=== PATIENT | female | born 1975 | race Asian ===

== ENCOUNTER → 2023-05-12 | Outpatient (CLI) | payer BC ==
[2023-05-15 08:12] LABS: HPV 16 Negative (Negative); HPV 18 Negative (Negative); HPV OTHER HR TYPES Negative (Negative)
== END ==
LOC: LAB 10:36 → LAB SHORT 10:36
PROVIDERS: Obstetrics & Gynecology
DX: Z01.419 Encounter for gynecological examination (general) (routine) without abnormal findings (principal)
CPT/HCPCS: 87624; G0145

== ENCOUNTER → 2023-05-12 | Outpatient (CLI) | payer BC | LOC: LAB SHORT 13:22 → LAB 13:22 | DX: N85.01 Benign endometrial hyperplasia (principal) | CPT/HCPCS: 88305 ==